=== PATIENT | male | born 1945 | race Caucasian/White ===

== ENCOUNTER 2017-09-29 09:54 | Emergency (ER) | payer OTHER ==
[~2017-09-29] VITALS: Ht 175.3 cm; Wt 101.7 kg
[~2017-09-29 09:54] MED LIST: AMLODIPINE BESY10 MG PO; LEVOFLOXACIN500 MG; LISINOPRIL40 MG PO; LOPRESSOR25 MG PO; METFORMIN HCL500 MG PO; NASONEX17 GM BOTH NARES; OMEPRAZOLE40 M1 PO; PRAVASTATIN SOD40 MG PO; TYLENOL ARTHRI650 M2 PO; TYLENOL ARTHRI650 MG PO; ZYRTEC10 M2 PO
[2017-09-29 11:02] LABS: HEMATOCRIT 42.7 % (38.0-50.0); HEMOGLOBIN 15.1 G/DL (12.5-16.6); MCH 33.3 PG (29.0-34.0); MCHC 35.4 G/DL (30.0-36.0); MCV 94.3 FL (86-99); PLATELET COUNT 146 K/uL (156-360); RBC DIS.WIDTH-SD 41.9 % (39-53); RED BLOOD COUNT 4.53 M/uL (4.00-5.50); WHITE BLOOD COUNT 8.3 K/uL (4.1-10.2)
[2017-09-29 11:10] LABS: CHLORIDE 107 mEq/L (99-109); POTASSIUM 3.9 mEq/L (3.7-5.4); SODIUM 143 mEq/L (136-147)
[2017-09-29 11:12] LABS: GLUCOSE 117 mg/dL (70-99)
[2017-09-29 11:16] LABS: CREATININE 0.7 mg/dL (0.6-1.3); GFR ESTIMATE (CALCULATED) > 59 mL/min/ (58.99-99999)
[2017-09-29 11:17] LABS: UREA NITROGEN (BUN) 19 mg/dL (9-23)
[2017-09-29 12:17] VITALS: BP 126/77
== END 2017-09-29 12:19 | disposition home or self-care (01) ==
LOC: EME 09:54
PROVIDERS: Nurse Practitioner Family
DX: R06.02 Shortness of breath (principal); J32.9 Chronic sinusitis, unspecified; K21.9 Gastro-esophageal reflux disease without esophagitis; E78.5 Hyperlipidemia, unspecified; I10 Essential (primary) hypertension; E11.9 Type 2 diabetes mellitus without complications; Z90.49 Acquired absence of other specified parts of digestive tract
CPT/HCPCS: 71045; 71046; 80048; 85027; 93005; 99281; 99284